=== PATIENT | female | born 1985 | race Asian ===

== ENCOUNTER 2017-06-11 20:08 | Emergency (ER) | payer OTHER ==
[~2017-06-11] VITALS: Ht 167.6 cm; Wt 52.6 kg
[2017-06-11] MEDS ORDERED: ACETAMINOPHEN ES 500 MG TABLET ONE (23:17)
[2017-06-11] MEDS ORDERED: ONDANSETRON 4 MG TAB.RAPDIS ONE (23:20)
[2017-06-11 23:24] VITALS: BP 127/64
[2017-06-11] MEDS ORDERED: ONDANSETRON 4 MG TAB.RAPDIS SL ONE (23:30)
[2017-06-11] MEDS ORDERED: ACETAMINOPHEN ES 500 MG TABLET PO ONE (23:30)
== END 2017-06-11 23:25 | disposition home or self-care (01) ==
LOC: ER 20:09
DX: S00.03XA Contusion of scalp, initial encounter (principal); W22.8XXA Striking against or struck by other objects, initial encounter; Y92.89 Other specified places as the place of occurrence of the external cause; Y93.89 Activity, other specified; Y99.8 Other external cause status
CPT/HCPCS: 99283; A4606; Q0162; Z7610

== ENCOUNTER 2017-09-13 13:47 | Outpatient (CLI) | payer OTHER | END 2017-09-13 23:59 | disposition home or self-care (01) | LOC: MRI 13:47 | DX: M50.33 Other cervical disc degeneration, cervicothoracic region (principal); M48.03 Spinal stenosis, cervicothoracic region; S13.9XXD Sprain of joints and ligaments of unspecified parts of neck, subsequent encounter; S00.03XD Contusion of scalp, subsequent encounter; X58.XXXD Exposure to other specified factors, subsequent encounter | CPT/HCPCS: 72141-TC ==

== ENCOUNTER → 2020-04-01 | Emergency (ER) | payer OTHER ==
[~2020-04-01] VITALS: Ht 167.6 cm; Wt 55.3 kg
[2020-04-01 15:58] VITALS: BP 125/80
--- NOTE | 2020-04-01 16:40 | NUR ---
COVID SWAB OBTAINED AND SENT TO LAB.
--- NOTE | 2020-04-01 16:53 | NUR ---
Patient discharged to home in stable condition. Written and verbal after care instructions given. Patient verbalizes understanding of instruction.
== END | disposition home or self-care (01) ==
LOC: ER 18:40
DX: Z11.59 Encounter for screening for other viral diseases (principal)
CPT/HCPCS: 99283; C9803; U0003

== ENCOUNTER 2020-04-11 06:13 | Emergency (ER) | payer OTHER ==
[~2020-04-11] VITALS: Ht 167.6 cm; Wt 55.8 kg
[2020-04-11 06:15] VITALS: BP 116/65
--- NOTE | 2020-04-11 06:22 | NUR ---
COVID SWAB COLLECTED AND SENT TO LAB
== END 2020-04-11 06:25 | disposition home or self-care (01) ==
LOC: ER 06:14
DX: Z11.59 Encounter for screening for other viral diseases (principal)
CPT/HCPCS: 87426; 99283; C9803; U0003

== ENCOUNTER 2020-04-30 16:21 | Emergency (ER) | payer OTHER ==
[~2020-04-30] VITALS: Ht 167.6 cm; Wt 106.6 kg
[2020-04-30 16:27] VITALS: BP 115/80
== END 2020-04-30 16:56 | disposition home or self-care (01) ==
LOC: ER 16:22
DX: Z20.828 Contact with and (suspected) exposure to other viral communicable diseases (principal); Z91.013 Allergy to seafood
CPT/HCPCS: 99283; C9803; U0003

== ENCOUNTER 2020-05-09 00:44 | Emergency (ER) | payer OTHER ==
[~2020-05-09] VITALS: Ht 167.6 cm; Wt 55.3 kg
[2020-05-09 00:46] VITALS: BP 124/79
== END 2020-05-09 00:57 | disposition home or self-care (01) ==
LOC: ER 00:45
DX: Z20.828 Contact with and (suspected) exposure to other viral communicable diseases (principal); Z91.013 Allergy to seafood
CPT/HCPCS: 99283; C9803; U0003

== ENCOUNTER 2020-05-14 12:52 | Emergency (ER) | payer OTHER ==
[~2020-05-14] VITALS: Ht 167.6 cm; Wt 55.3 kg
[2020-05-14 13:00] VITALS: BP 125/84
== END 2020-05-14 13:19 | disposition home or self-care (01) ==
LOC: ER 12:55
DX: Z20.828 Contact with and (suspected) exposure to other viral communicable diseases (principal); Z91.013 Allergy to seafood
CPT/HCPCS: 99283; C9803; U0003

== ENCOUNTER 2020-05-30 02:00 | Emergency (ER) | payer OTHER ==
[~2020-05-30] VITALS: Ht 167.6 cm; Wt 56.2 kg
[2020-05-30 02:02] VITALS: BP 134/62
== END 2020-05-30 02:18 | disposition home or self-care (01) ==
LOC: ER 02:02
DX: Z20.828 Contact with and (suspected) exposure to other viral communicable diseases (principal)
CPT/HCPCS: 99283; C9803; U0003

== ENCOUNTER 2020-06-12 02:05 | Emergency (ER) | payer OTHER ==
[~2020-06-12] VITALS: Ht 167.6 cm; Wt 56.2 kg
[2020-06-12 02:07] VITALS: BP 127/65
--- NOTE | 2020-06-12 02:25 | NUR ---
SWAB COLLECTED AND SENT TO THE LAB.
== END 2020-06-12 02:30 | disposition home or self-care (01) ==
LOC: ER 02:05
DX: Z20.828 Contact with and (suspected) exposure to other viral communicable diseases (principal); Z91.013 Allergy to seafood
CPT/HCPCS: 99283; C9803; U0003

== ENCOUNTER 2020-06-15 04:00 | Emergency (ER) | payer OTHER ==
[~2020-06-15] VITALS: Ht 167.6 cm; Wt 54.4 kg
[2020-06-15 04:02] VITALS: BP 132/62
--- NOTE | 2020-06-15 04:06 | NUR ---
called for covid swabs
== END 2020-06-15 04:10 | disposition home or self-care (01) ==
LOC: ER 04:03
DX: Z20.828 Contact with and (suspected) exposure to other viral communicable diseases (principal); Z91.013 Allergy to seafood
CPT/HCPCS: 99283; C9803; U0003

== ENCOUNTER 2020-06-27 00:55 | Emergency (ER) | payer OTHER ==
[~2020-06-27] VITALS: Ht 167.6 cm; Wt 54.4 kg
[2020-06-27 00:57] VITALS: BP 132/61
== END 2020-06-27 01:18 | disposition home or self-care (01) ==
LOC: ER 00:58
DX: Z20.828 Contact with and (suspected) exposure to other viral communicable diseases (principal); Z91.013 Allergy to seafood
CPT/HCPCS: 99283; C9803; U0003

== ENCOUNTER 2020-06-30 05:37 | Emergency (ER) | payer OTHER ==
[~2020-06-30] VITALS: Ht 167.6 cm; Wt 54.4 kg
[2020-06-30 05:39] VITALS: BP 116/79
== END 2020-06-30 05:47 | disposition home or self-care (01) ==
LOC: ER 05:38
DX: Z20.828 Contact with and (suspected) exposure to other viral communicable diseases (principal); Z91.013 Allergy to seafood
CPT/HCPCS: 99283; C9803; U0003

== ENCOUNTER 2020-07-06 01:44 | Emergency (ER) | payer OTHER ==
[~2020-07-06] VITALS: Ht 167.6 cm; Wt 54.4 kg
[2020-07-06 02:00] VITALS: BP 129/75
== END 2020-07-06 02:07 | disposition home or self-care (01) ==
LOC: ER 01:45
DX: Z20.828 Contact with and (suspected) exposure to other viral communicable diseases (principal); Z91.013 Allergy to seafood
CPT/HCPCS: 99283; C9803; U0003

== ENCOUNTER 2020-07-17 03:49 | Emergency (ER) | payer OTHER ==
[~2020-07-17] VITALS: Ht 167.6 cm; Wt 54.4 kg
[2020-07-17 03:51] VITALS: BP 132/62
== END 2020-07-17 04:18 | disposition home or self-care (01) ==
LOC: ER 03:53
DX: Z20.828 Contact with and (suspected) exposure to other viral communicable diseases (principal); Z91.013 Allergy to seafood
CPT/HCPCS: 99283; C9803; U0003

== ENCOUNTER 2020-07-18 03:48 | Emergency (ER) | payer OTHER ==
[~2020-07-18] VITALS: Ht 167.6 cm; Wt 54.4 kg
[2020-07-18 03:50] VITALS: BP 127/88
== END 2020-07-18 04:02 | disposition home or self-care (01) ==
LOC: ER 03:50
DX: Z20.828 Contact with and (suspected) exposure to other viral communicable diseases (principal); Z91.013 Allergy to seafood
CPT/HCPCS: 99283; C9803; U0003

== ENCOUNTER 2020-07-28 03:42 | Emergency (ER) | payer OTHER ==
[~2020-07-28] VITALS: Ht 167.6 cm; Wt 54.4 kg
[2020-07-28 03:44] VITALS: BP 118/79
== END 2020-07-28 03:52 | disposition home or self-care (01) ==
LOC: ER 03:43
DX: Z20.828 Contact with and (suspected) exposure to other viral communicable diseases (principal)
CPT/HCPCS: 99283; C9803; U0003

== ENCOUNTER 2020-08-03 02:28 | Emergency (ER) | payer OTHER ==
[~2020-08-03] VITALS: Ht 167.6 cm; Wt 54.9 kg
[2020-08-03 02:29] VITALS: BP 124/62
== END 2020-08-03 02:41 | disposition home or self-care (01) ==
LOC: ER 02:29
DX: Z20.828 Contact with and (suspected) exposure to other viral communicable diseases (principal); Z91.013 Allergy to seafood
CPT/HCPCS: 99283; C9803; U0003

== ENCOUNTER 2020-08-10 00:24 | Emergency (ER) | payer OTHER ==
[~2020-08-10] VITALS: Ht 167.6 cm; Wt 54.9 kg
[2020-08-10 00:27] VITALS: BP 125/64
== END 2020-08-10 01:23 | disposition home or self-care (01) ==
LOC: ER 00:25
DX: Z20.828 Contact with and (suspected) exposure to other viral communicable diseases (principal)
CPT/HCPCS: 99283; C9803; U0003

== ENCOUNTER 2020-08-17 01:18 | Emergency (ER) | payer OTHER ==
[~2020-08-17] VITALS: Ht 167.6 cm; Wt 54.9 kg
[2020-08-17 01:46] VITALS: BP 122/84
== END 2020-08-17 01:52 | disposition home or self-care (01) ==
LOC: ER 01:19
DX: Z20.828 Contact with and (suspected) exposure to other viral communicable diseases (principal); Z91.013 Allergy to seafood
CPT/HCPCS: 99283; C9803; U0003

== ENCOUNTER 2020-08-23 03:35 | Emergency (ER) | payer OTHER ==
[~2020-08-23] VITALS: Ht 167.6 cm; Wt 54.4 kg
[2020-08-23 03:41] VITALS: BP 132/61
--- NOTE | 2020-08-23 22:44 | NUR ---
NOTIFIED OF COVID RESULTS, PT IS NEGATIVE FOR COVID
== END 2020-08-23 04:27 | disposition home or self-care (01) ==
LOC: ER 03:37
DX: Z20.828 Contact with and (suspected) exposure to other viral communicable diseases (principal); Z91.013 Allergy to seafood
CPT/HCPCS: 99283; C9803; U0003

== ENCOUNTER 2020-08-31 02:06 | Emergency (ER) | payer OTHER ==
[~2020-08-31] VITALS: Ht 167.6 cm; Wt 54.4 kg
[2020-08-31 02:08] VITALS: BP 123/61
== END 2020-08-31 02:20 | disposition home or self-care (01) ==
LOC: ER 02:08
DX: Z20.828 Contact with and (suspected) exposure to other viral communicable diseases (principal)
CPT/HCPCS: 99283; C9803; U0003

== ENCOUNTER 2020-09-05 02:41 | Emergency (ER) | payer OTHER ==
[~2020-09-05] VITALS: Ht 167.6 cm; Wt 54.4 kg
[2020-09-05 02:44] VITALS: BP 137/82
== END 2020-09-05 03:17 | disposition home or self-care (01) ==
LOC: ER 02:50
DX: Z20.828 Contact with and (suspected) exposure to other viral communicable diseases (principal)
CPT/HCPCS: 99283; C9803; U0003

== ENCOUNTER 2020-09-09 02:46 | Emergency (ER) | payer OTHER ==
[~2020-09-09] VITALS: Ht 167.6 cm; Wt 55.3 kg
[2020-09-09 02:48] VITALS: BP 118/68
== END 2020-09-09 03:06 | disposition home or self-care (01) ==
LOC: ER 02:47
DX: Z20.828 Contact with and (suspected) exposure to other viral communicable diseases (principal)
CPT/HCPCS: 99283; C9803; U0003

== ENCOUNTER 2020-09-12 04:27 | Emergency (ER) | payer OTHER ==
[~2020-09-12] VITALS: Ht 167.6 cm; Wt 54.4 kg
[2020-09-12 04:34] VITALS: BP 128/66
== END 2020-09-12 05:11 | disposition home or self-care (01) ==
LOC: ER 04:28
DX: Z20.828 Contact with and (suspected) exposure to other viral communicable diseases (principal); Z91.013 Allergy to seafood
CPT/HCPCS: 99283; C9803; U0003

== ENCOUNTER 2020-09-15 02:18 | Emergency (ER) | payer OTHER ==
[~2020-09-15] VITALS: Ht 167.6 cm; Wt 54.4 kg
[2020-09-15 02:19] VITALS: BP 125/64
--- NOTE | 2020-09-15 02:39 | NUR ---
SWAB COLLECTED AND SENT TO THE LAB.
== END 2020-09-15 02:41 | disposition home or self-care (01) ==
LOC: ER 02:19
DX: Z20.822 Contact with and (suspected) exposure to COVID-19 (principal); Z91.013 Allergy to seafood
CPT/HCPCS: 99283; C9803; U0003

== ENCOUNTER 2020-09-21 03:24 | Emergency (ER) | payer OTHER ==
[~2020-09-21] VITALS: Ht 167.6 cm; Wt 54.4 kg
[2020-09-21 03:29] VITALS: BP 124/61
== END 2020-09-21 04:02 | disposition home or self-care (01) ==
LOC: ER 03:25
DX: Z20.822 Contact with and (suspected) exposure to COVID-19 (principal); Z91.013 Allergy to seafood
CPT/HCPCS: 99283; C9803; U0003

== ENCOUNTER 2020-09-30 04:26 | Emergency (ER) | payer OTHER ==
[~2020-09-30] VITALS: Ht 167.6 cm; Wt 54.4 kg
[2020-09-30 04:27] VITALS: BP 128/62
== END 2020-09-30 05:04 | disposition home or self-care (01) ==
LOC: ER 04:26
DX: Z20.822 Contact with and (suspected) exposure to COVID-19 (principal)
CPT/HCPCS: 99283; C9803; U0003

== ENCOUNTER 2020-10-07 04:15 | Emergency (ER) | payer OTHER ==
[~2020-10-07] VITALS: Ht 167.6 cm; Wt 54.4 kg
[2020-10-07 04:21] VITALS: BP 124/59
== END 2020-10-07 04:56 | disposition home or self-care (01) ==
LOC: ER 04:15
DX: Z20.822 Contact with and (suspected) exposure to COVID-19 (principal); Z91.013 Allergy to seafood
CPT/HCPCS: 99283; C9803; U0003

== ENCOUNTER 2020-10-12 01:57 | Emergency (ER) | payer OTHER ==
[~2020-10-12] VITALS: Ht 167.6 cm; Wt 56.7 kg
[2020-10-12 02:03] VITALS: BP 124/65
== END 2020-10-12 03:09 | disposition home or self-care (01) ==
LOC: ER 02:00
DX: Z20.822 Contact with and (suspected) exposure to COVID-19 (principal); Z91.013 Allergy to seafood
CPT/HCPCS: 99283; C9803; U0003

== ENCOUNTER 2020-10-18 03:24 | Emergency (ER) | payer OTHER ==
[~2020-10-18] VITALS: Ht 167.6 cm; Wt 54.4 kg
[2020-10-18 03:25] VITALS: BP 121/67
== END 2020-10-18 03:36 | disposition home or self-care (01) ==
LOC: ER 03:25
DX: Z20.822 Contact with and (suspected) exposure to COVID-19 (principal); Z91.013 Allergy to seafood
CPT/HCPCS: 99283; C9803; U0003

== ENCOUNTER 2020-10-27 00:28 | Emergency (ER) | payer OTHER ==
[~2020-10-27] VITALS: Ht 167.6 cm; Wt 56.7 kg
[2020-10-27 00:29] VITALS: BP 121/62
== END 2020-10-27 01:17 | disposition home or self-care (01) ==
LOC: ER 00:33
DX: Z20.822 Contact with and (suspected) exposure to COVID-19 (principal); Z91.013 Allergy to seafood
CPT/HCPCS: 99283; C9803; U0003

== ENCOUNTER 2020-10-30 02:54 | Emergency (ER) | payer OTHER ==
[~2020-10-30] VITALS: Ht 167.6 cm; Wt 56.7 kg
[2020-10-30 03:01] VITALS: BP 124/61
== END 2020-10-30 03:54 | disposition home or self-care (01) ==
LOC: ER 02:54
DX: Z20.822 Contact with and (suspected) exposure to COVID-19 (principal); Z91.013 Allergy to seafood
CPT/HCPCS: 99283; C9803; U0003

== ENCOUNTER 2020-11-02 05:16 | Emergency (ER) | payer OTHER ==
[~2020-11-02] VITALS: Ht 167.6 cm; Wt 56.7 kg
[2020-11-02 05:19] VITALS: BP 132/79
== END 2020-11-02 06:00 | disposition home or self-care (01) ==
LOC: ER 05:17
DX: Z20.822 Contact with and (suspected) exposure to COVID-19 (principal); Z91.013 Allergy to seafood
CPT/HCPCS: 99283; C9803; U0003

== ENCOUNTER 2020-12-10 02:03 | Emergency (ER) | payer OTHER ==
[~2020-12-10] VITALS: Ht 172.7 cm; Wt 56.7 kg
[2020-12-10 02:15] VITALS: BP 112/72
== END 2020-12-10 05:09 | disposition home or self-care (01) ==
LOC: ER 02:07
DX: Z20.822 Contact with and (suspected) exposure to COVID-19 (principal); Z91.013 Allergy to seafood
CPT/HCPCS: 99283; C9803; U0003

== ENCOUNTER 2020-12-17 02:13 | Emergency (ER) | payer OTHER ==
[~2020-12-17] VITALS: Ht 167.6 cm; Wt 54.4 kg
[2020-12-17 02:14] VITALS: BP 124/71
== END 2020-12-17 02:47 | disposition home or self-care (01) ==
LOC: ER 02:16
DX: Z20.822 Contact with and (suspected) exposure to COVID-19 (principal)
CPT/HCPCS: 99283; C9803; U0003

== ENCOUNTER 2020-12-25 23:46 | Emergency (ER) | payer OTHER ==
[~2020-12-25] VITALS: Ht 167.6 cm; Wt 54.4 kg
[2020-12-25 23:46] VITALS: BP 120/56
== END 2020-12-26 00:19 | disposition home or self-care (01) ==
LOC: ER 23:48
DX: Z20.822 Contact with and (suspected) exposure to COVID-19 (principal); Z91.013 Allergy to seafood
CPT/HCPCS: 99283; C9803; U0003

== ENCOUNTER 2020-12-28 01:27 | Emergency (ER) | payer OTHER ==
[~2020-12-28] VITALS: Ht 167.6 cm; Wt 54.4 kg
[2020-12-28 01:32] VITALS: BP 128/85
== END 2020-12-28 02:06 | disposition home or self-care (01) ==
LOC: ER 01:28
DX: Z20.822 Contact with and (suspected) exposure to COVID-19 (principal); Z91.013 Allergy to seafood
CPT/HCPCS: 99283; C9803; U0003

== ENCOUNTER 2021-01-10 00:47 | Emergency (ER) | payer OTHER ==
[~2021-01-10] VITALS: Ht 167.6 cm; Wt 54.4 kg
[2021-01-10 00:47] VITALS: BP 121/75
== END 2021-01-10 02:24 | disposition home or self-care (01) ==
LOC: ER 00:52
DX: Z20.822 Contact with and (suspected) exposure to COVID-19 (principal); Z91.013 Allergy to seafood
CPT/HCPCS: 99283; C9803; U0003

== ENCOUNTER 2021-01-29 19:48 | Emergency (ER) | payer OTHER ==
[~2021-01-29] VITALS: Ht 167.6 cm; Wt 54.4 kg
[2021-01-29 19:48] VITALS: BP 122/65
== END 2021-01-29 20:38 | disposition home or self-care (01) ==
LOC: ER 19:56
DX: Z20.822 Contact with and (suspected) exposure to COVID-19 (principal); Z91.013 Allergy to seafood
CPT/HCPCS: 99283; C9803; U0003

== ENCOUNTER 2021-01-31 02:43 | Emergency (ER) | payer OTHER ==
[~2021-01-31] VITALS: Ht 167.6 cm; Wt 54.4 kg
[2021-01-31 02:52] VITALS: BP 119/68
== END 2021-01-31 03:46 | disposition home or self-care (01) ==
LOC: ER 02:48
DX: Z20.822 Contact with and (suspected) exposure to COVID-19 (principal)
CPT/HCPCS: 99283; C9803; U0003

== ENCOUNTER 2021-02-07 03:23 | Emergency (ER) | payer OTHER ==
[~2021-02-07] VITALS: Ht 167.6 cm; Wt 54.4 kg
[2021-02-07 03:36] VITALS: BP 121/70
== END 2021-02-07 03:56 | disposition home or self-care (01) ==
LOC: ER 03:27
DX: Z20.822 Contact with and (suspected) exposure to COVID-19 (principal)
CPT/HCPCS: 99283; C9803; U0003

== ENCOUNTER 2021-02-13 04:18 | Emergency (ER) | payer OTHER ==
[~2021-02-13] VITALS: Ht 167.6 cm; Wt 54.4 kg
[2021-02-13 04:22] VITALS: BP 124/64
== END 2021-02-13 04:59 | disposition home or self-care (01) ==
LOC: ER 04:18
DX: Z20.822 Contact with and (suspected) exposure to COVID-19 (principal); Z91.013 Allergy to seafood
CPT/HCPCS: 99283; C9803; U0003

== ENCOUNTER 2021-02-22 04:33 | Emergency (ER) | payer OTHER ==
[~2021-02-22] VITALS: Ht 167.6 cm; Wt 54.4 kg
[2021-02-22 04:34] VITALS: BP 124/64
== END 2021-02-22 05:28 | disposition home or self-care (01) ==
LOC: ER 04:35
DX: Z20.822 Contact with and (suspected) exposure to COVID-19 (principal); Z91.013 Allergy to seafood
CPT/HCPCS: 99283; C9803; U0003

== ENCOUNTER 2021-03-01 04:28 | Emergency (ER) | payer OTHER ==
[~2021-03-01] VITALS: Ht 167.6 cm; Wt 54.4 kg
[2021-03-01 04:28] VITALS: BP 121/75
== END 2021-03-01 05:12 | disposition home or self-care (01) ==
LOC: ER 04:29
DX: Z20.822 Contact with and (suspected) exposure to COVID-19 (principal); Z91.013 Allergy to seafood
CPT/HCPCS: 99283; C9803; U0003

== ENCOUNTER 2021-03-07 04:41 | Emergency (ER) | payer OTHER ==
[~2021-03-07] VITALS: Ht 167.6 cm; Wt 54.4 kg
[2021-03-07 04:41] VITALS: BP 121/75
== END 2021-03-07 04:59 | disposition home or self-care (01) ==
LOC: ER 04:42
DX: Z20.822 Contact with and (suspected) exposure to COVID-19 (principal); Z91.013 Allergy to seafood
CPT/HCPCS: 99283; C9803; U0003

== ENCOUNTER 2021-04-28 22:35 | Emergency (ER) | payer OTHER ==
[~2021-04-28] VITALS: Ht 167.6 cm; Wt 65.8 kg
[2021-04-28 22:37] VITALS: BP 116/67
== END 2021-04-29 00:04 | disposition home or self-care (01) ==
LOC: ER 22:36
DX: Z20.822 Contact with and (suspected) exposure to COVID-19 (principal); Z91.013 Allergy to seafood
CPT/HCPCS: 99283; C9803; U0003

== ENCOUNTER 2021-09-11 09:12 | Emergency (ER) | payer OTHER ==
[~2021-09-11] VITALS: Ht 167.6 cm; Wt 54.4 kg
[2021-09-11 09:23] VITALS: BP 120/84
== END 2021-09-11 10:50 | disposition home or self-care (01) ==
LOC: ER 09:14
DX: Z20.822 Contact with and (suspected) exposure to COVID-19 (principal); Z91.013 Allergy to seafood
CPT/HCPCS: 99283; C9803; U0003

== ENCOUNTER 2021-09-19 22:09 | Emergency (ER) | payer OTHER ==
[~2021-09-19] VITALS: Ht 167.6 cm; Wt 54.4 kg
[2021-09-19 22:21] VITALS: BP 118/69
--- NOTE | 2021-09-19 23:16 | NUR ---
COVID SWAB DONE AND SENT TO LAB
--- NOTE | 2021-09-19 23:16 | NUR ---
COVID SWAB DONE AND SENT TO LAB
== END 2021-09-19 23:16 | disposition home or self-care (01) ==
LOC: ER 22:11
DX: Z20.822 Contact with and (suspected) exposure to COVID-19 (principal); Z91.013 Allergy to seafood
CPT/HCPCS: 87426; 99283; C9803; U0003